=== PATIENT | male | born 1945 | race Caucasian/White ===

== ENCOUNTER → 2019-04-17 12:29 | Outpatient (CLI) | payer OTHER, SELFPAY ==
--- NOTE | 2019-04-17 | DI.RAD.S_ITS ---
PROCEDURE: XR CHEST 2V INDICATIONS: CHEST PAIN TECHNIQUE: 2 views of the chest were acquired. COMPARISON: None. FINDINGS: Surgical changes and devices: None. Lungs and pleura: Lungs are clear. No pleural effusions or pneumothorax. Mediastinum: Mediastinal contours are normal. Heart size is normal. Bones and chest wall: No suspicious bony abnormalities. Soft tissues appear unremarkable. IMPRESSION: No acute cardiopulmonary disease. Dictated by: Nayeli Timmons M.D. on 04/17/2019 at 16:46 Approved by: Nayeli Timmons M.D. on 04/17/2019 at 16:48
== END ==
PROVIDERS: PCP Family Medicine; Visit Provider Family Medicine
DX: R07.9 Chest pain, unspecified (principal)
CPT/HCPCS: 71046